=== PATIENT | female | born 1950 | race Caucasian/White ===

== ENCOUNTER 2021-07-03 09:32 | Outpatient (REF) | payer MEDICARE, SELFPAY ==
--- NOTE | 2021-07-03 14:17 | MHC.AU.AHA ---
Adult Audiological Evaluation Date of Visit: 07/03/21 Reason for Appointment: Audiological re-evaluation to monitor the status of Ms. Painter's hearing loss. She has a known asymmetrical sensorineural hearing loss, with the right ear hearing worse than the left. She uses a hearing aid in the right ear only. She feels her hearing is gradually getting worse. She denies any changes to her medical history over the past two years. Previous Hearing Test Results: [facility] [place], 06/30/2019 - Normal hearing sloping to a moderate sensorineural hearing loss in the left ear. Normal hearing steeply sloping to a moderate to profound sensorineural hearing loss in the right ear. 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: [employer] Model: [employer] Q50-SP BTE Serial Number: [id number] Battery Size: 13 Repair Warranty: 12/26/2015 Loss and Damage Warranty: 12/25/2014 Dispensed By: [facility] Date of Fittin10/27/2013 Otoscopy: Right Ear: Unremarkable Left Ear: Unremarkable Tympanometry: Tympanometry performed due to: To assess integrity of the middle ear system Right Ear: Normal Middle Ear System (Type A) Left Ear: Normal Middle Ear System (Type A) Hearing Evaluation: Transducer(s) Used: Insert Earphones, Bone Conduction Method: Conventional Audiometry Stimuli Used: Pure Tones Right Ear: Description of Hearing: Normal hearing from 250-1000 Hz, steeply sloping to a moderate to profound sensorineural hearing loss from 4725-6630 Hz. Left Ear: Description of Hearing: Normal hearing from 250-2000 Hz, sloping to a moderate sensorineural hearing loss from 6896-6430 Hz. Speech Recognition Threshold (SRT): Method Used: Monitored Live Voice Stimuli Used: Spondee Words Right Ear: 25 dBHL Left Ear: 10 dBHL Word Discrimination: Method: Recorded Lists Word Lists Used: NU-6 Right Ear: 64% at 80 dBHL with masking Left Ear: 92% at 65 dBHL Comparison: Compared to the most recent evaluation: Hearing is stable. Recommendations: Audiological re-evaluation in one year. Hearing aid maintenance performed today. Diagnosis: Primary Diagnosis: H90.3 Bilateral Sensorineural Hearing Loss Services Performed: Comprehensive Audiological Evaluation (CPT 01728) Tympanometry (CPT 53385) Signature: Provider: Alejandro Car, CCC-A
== END 2021-07-03 09:33 | disposition home or self-care (01) ==
LOC: HO.SH 09:32
PROVIDERS: Visit Provider Nurse Practitioner
DX: H90.3 Sensorineural hearing loss, bilateral (principal)
CPT/HCPCS: 92557; 92567

== ENCOUNTER 2022-08-04 09:35 | Outpatient (REF) | payer MEDICARE, SELFPAY | END 2022-08-04 09:36 | disposition home or self-care (01) | LOC: HO.SH 09:35 | PROVIDERS: Visit Provider Family Medicine | DX: Z01.118 Encounter for examination of ears and hearing with other abnormal findings (principal); H90.3 Sensorineural hearing loss, bilateral | CPT/HCPCS: 92557 ==

== ENCOUNTER 2022-08-04 10:29 | Outpatient (REF) | payer SELFPAY ==
--- NOTE | 2022-08-04 11:55 | MHC.AU.HFU ---
Hearing Instrument Follow-Up- Binaural Date of Visit: 08/04/22 Right Ear: Kanchan Richardson Q50-SP BTE SN: [id number] Color: [place] Repair Warranty: 12/26/2015 Loss and Damage Warranty: 12/25/2014 Battery Size: 13 Type of Mold: Microsonic canal shell Dispensed By: [facility] Date of Fittin10/27/2013 Follow-Up Summary: Yoana returned for routine hearing aid maintenance. Her hearing aid and ear mold were cleaned. Microphones were vacummed and tubing was replaced. A listening check demonstrated that the hearing aid is in good working order. Discussed possibility of upgrading hearing aid technology due to age of current device. Yoana reported that she will consider options and schedule a hearing aid evaluation if she decides to pursue new hearing aids. Recommendations: Hearing instrument maintenance in 6 months, or sooner if needed. Patient will call if problems persist. Diagnosis Code(s): Primary Diagnosis: H90.3 Bilateral Sensorineural Hearing Loss Signature: Provider: Xavier Canseco, [facility]
== END 2022-08-04 10:30 | disposition home or self-care (01) ==
LOC: HO.HAP 10:29
PROVIDERS: Visit Provider Family Medicine
DX: Z46.1 Encounter for fitting and adjustment of hearing aid (principal); H90.3 Sensorineural hearing loss, bilateral
CPT/HCPCS: 92592

== ENCOUNTER 2022-12-05 12:16 | Outpatient (REF) | payer SELFPAY | END 2022-12-05 12:17 | disposition home or self-care (01) | LOC: HO.HAP 12:16 | PROVIDERS: Visit Provider Internal Medicine | DX: Z46.1 Encounter for fitting and adjustment of hearing aid (principal); H90.3 Sensorineural hearing loss, bilateral | CPT/HCPCS: 92592 ==